=== PATIENT | female | born 1980 | race Caucasian/White ===

== ENCOUNTER 2017-05-15 10:13 | Emergency (ER) | payer BC, OTHER ==
[~2017-05-15] VITALS: Ht 165.1 cm; Wt 106.6 kg
[~2017-05-15 10:13] MED LIST: GLUCOPHAGE500 MG PO; KEFLEX500 MG PO; NORCO 7.5-3251 EACH PO; PANTOPRAZOLE SO40 MG PO; ULTRAM50 MG PO
[2017-05-15] MEDS ORDERED: HYDROCODONE/APAP 10MG-325MG TAB PO ONE (10:45)
== END 2017-05-15 11:47 | disposition home or self-care (01) ==
LOC: ER 10:13
DX: L02.213 Cutaneous abscess of chest wall (principal)
CPT/HCPCS: 99283

== ENCOUNTER → 2018-11-28 | Outpatient (CLI) | payer OTHER ==
--- NOTE | 2018-11-28 11:39 | Diagnostic Imaging Report ---
TECHNIQUE: Magnetic resonance imaging of the LEFT KNEE was performed WITHOUT injected contrast. HISTORY: Left knee pain COMPARISON: None available. FINDINGS: LIGAMENTS AND TENDONS: ACL: Intact PCL: Intact Collateral ligaments: Intact Iliotibial band: Unremarkable Popliteal tendon: Intact Extensor mechanism: Intact JOINT: Menisci: Medial: Intact Lateral: Intact Articular Cartilage: Medial Compartment: No focal defect. Lateral Compartment: No focal defect. Patellofemoral Compartment: No focal defect. Joint Fluid: The amount of fluid within the joint is within physiologic limits. BONE: No focal or infiltrative bone marrow replacing abnormality. No acute fracture. SOFT TISSUES: Prepatellar fluid. IMPRESSION: No acute osseous, ligamentous, or meniscal abnormality. Prepatellar hematoma versus bursitis. Signed by: Dr. Hieu West M.D. on 11/28/2018 11:36 AM
== END ==
LOC: MRI 09:15
PROVIDERS: ATTEND Family Medicine
DX: M25.562 Pain in left knee (principal); S89.92XD Unspecified injury of left lower leg, subsequent encounter